=== PATIENT | female | born 2000 | race Caucasian/White ===

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

== ENCOUNTER 2020-03-06 19:30 | Outpatient (CLI) | payer BC | END 2020-03-06 19:31 | disposition home or self-care (01) | LOC: SLEEPLAB 19:30 | PROVIDERS: ATTEND Family Medicine | DX: G47.419 Narcolepsy without cataplexy (principal); R53.83 Other fatigue; R51.9 Headache, unspecified; G47.11 Idiopathic hypersomnia with long sleep time | CPT/HCPCS: 95810 ==

== ENCOUNTER 2020-03-07 06:00 | Outpatient (CLI) | payer BC | END 2020-03-07 06:01 | disposition home or self-care (01) | LOC: SLEEPLAB 06:00 | PROVIDERS: ATTEND Family Medicine | DX: G47.419 Narcolepsy without cataplexy (principal); R51.9 Headache, unspecified; R53.83 Other fatigue; G47.11 Idiopathic hypersomnia with long sleep time | CPT/HCPCS: 95805 ==